=== PATIENT | male | born 1950 | race Caucasian/White ===

== ENCOUNTER → 2018-03-09 | Outpatient (CLI) | payer OTHER ==
[~2018-03-09] MED LIST: FLEXERIL5 MG PO; MEDROL DOSEPAK4 MG PO; PREDNISONE10 MG PO; PROAIR HFA0.09 MG/AC IH; PROVENTIL0.09 MG/AC IH; ROBITUSSIN AC 110 ML PO; SINGULAIR10 MG PO; SPIRIVA18 MCG IH; VOLTAREN50 M1 PO; ZITHROMAX Z PA250 MG PO
== END | disposition home or self-care (01) ==
LOC: RAD 12:06
DX: R04.2 Hemoptysis (principal); R09.89 Other specified symptoms and signs involving the circulatory and respiratory systems; Z87.891 Personal history of nicotine dependence

== ENCOUNTER 2020-06-19 01:46 | Emergency (ER) | payer OTHER ==
[~2020-06-19] VITALS: Ht 175.2 cm; Wt 108.9 kg
== END 2020-06-19 03:07 | disposition home or self-care (01) ==
LOC: ED 01:46
DX: S01.01XA Laceration without foreign body of scalp, initial encounter (principal); F17.200 Nicotine dependence, unspecified, uncomplicated; Z79.899 Other long term (current) drug therapy; W22.8XXA Striking against or struck by other objects, initial encounter; Y93.89 Activity, other specified; Y92.89 Other specified places as the place of occurrence of the external cause; Y99.8 Other external cause status

== ENCOUNTER 2020-06-26 15:25 | Emergency (ER) | payer OTHER ==
[~2020-06-26] VITALS: Ht 175.2 cm; Wt 108.9 kg
== END 2020-06-26 16:45 | disposition home or self-care (01) ==
LOC: ED 15:25
DX: S09.90XD Unspecified injury of head, subsequent encounter (principal); Z48.02 Encounter for removal of sutures; Z79.899 Other long term (current) drug therapy; X58.XXXD Exposure to other specified factors, subsequent encounter

== ENCOUNTER 2022-09-02 09:36 | Emergency (ER) | payer MEDICARE ==
[~2022-09-02] VITALS: Ht 175.2 cm; Wt 99.8 kg
[2022-09-02 11:16] LABS: BASO # 0.1 10*3/uL (0.0-0.1); BASO % 0.9 % (0.0-1.0); EOS # 0.5 10*3/uL (0.0-0.4); HEMATOCRIT 51.2 % (42.0-52.0); LYMPH % 22.2 % (27.0-41.0); MEAN CELL VOLUME 92.6 fl (80.0-94.0); MEAN CORPUSCULAR HGB 30.2 pg (27.0-31.0); MEAN CORPUSCULAR HGB CONC 32.6 g/dl (33.0-37.0); MEAN PLATELET VOLUME 9.1 fl (9.6-12.3); MONO # 0.7 10*3/uL (0.1-1.0); MONO % 8.1 % (3.0-9.0); NEUT # 5.5 10*3/uL (2.3-7.9); NEUT % 62.5 % (47.0-73.0); PLATELET COUNT AUTOMATED 266 10*3/uL (130-400); RED BLOOD COUNT 5.53 10*6/uL (4.50-5.90); RED CELL DISTRI WIDTH 12.5 % (0-14.5); WHITE BLOOD COUNT 8.8 10*3/uL (4.8-10.8)
[2022-09-02 11:29] LABS: ACT PARTIAL THROMBO TIME 32.5 SECONDS (20.0-32.1)
[2022-09-02 11:39] LABS: ALKALINE PHOSPHATASE 100 U/L (46-116); BUN 13 mg/dl (9-23); CHLORIDE 106 mmol/L (98-107); CREATININE 0.67 mg/dL (0.70-1.30); LIPASE 80 U/L (12-53); POTASSIUM 5.3 mmol/L (3.4-5.1); SGPT/ALT 33 U/L (10-49); SODIUM 138 mmol/L (136-145)
[2022-09-02] MEDS ORDERED: PREDNISONE20 M1 PO (12:46)
[2022-09-02] MEDS ORDERED: COMBIVENT RESPIM4 GM INH (12:46)
== END 2022-09-02 12:57 | disposition home or self-care (01) ==
LOC: ED 09:36
PROVIDERS: Family Medicine
DX: J44.9 Chronic obstructive pulmonary disease, unspecified (principal); F10.90 Alcohol use, unspecified, uncomplicated; Z90.49 Acquired absence of other specified parts of digestive tract

== ENCOUNTER 2023-10-15 08:02 | Emergency (ER) | payer MEDICARE ==
[~2023-10-15] VITALS: Wt 102.1 kg
[~2023-10-15 08:02] MED LIST changes: +COMBIVENT RESPIM4 GM INH; +PREDNISONE20 M1 PO
[2023-10-15 08:44] LABS: BASO # 0.1 10*3/uL (0.0-0.1); BASO % 1.1 % (0.0-1.0); EOS # 0.6 10*3/uL (0.0-0.4); EOS % 6.2 % (1.0-4.0); HEMATOCRIT 51.3 % (42.0-52.0); LYMPH # 2.5 10*3/uL (1.3-4.4); MEAN CELL VOLUME 92.4 fl (80.0-94.0); MEAN CORPUSCULAR HGB 29.4 pg (27.0-31.0); MEAN CORPUSCULAR HGB CONC 31.8 g/dl (33.0-37.0); MEAN PLATELET VOLUME 9.1 fl (9.6-12.3); MONO # 0.9 10*3/uL (0.1-1.0); MONO % 9.1 % (3.0-9.0); NEUT # 5.9 10*3/uL (2.3-7.9); NEUT % 58.1 % (47.0-73.0); PLATELET COUNT AUTOMATED 238 10*3/uL (130-400); RED BLOOD COUNT 5.55 10*6/uL (4.50-5.90); RED CELL DISTRI WIDTH 12.8 % (0-14.5); WHITE BLOOD COUNT 10.1 10*3/uL (4.8-10.8)
[2023-10-15 09:08] LABS: ALKALINE PHOSPHATASE 108 U/L (46-116); BUN 16 mg/dl (9-23); CHLORIDE 108 mmol/L (98-107); POTASSIUM 4.5 mmol/L (3.4-5.1); SGPT/ALT 35 U/L (5-49); TOTAL PROTEIN 7.1 gm/dL (6.0-8.0)
[2023-10-15] MEDS ORDERED: ZITHROMAX250 MG PO (11:56)
[2023-10-15] MEDS ORDERED: PREDNISONE50 MG PO (11:56)
== END 2023-10-15 12:42 | disposition home or self-care (01) ==
LOC: ED 08:02
PROVIDERS: Internal Medicine
DX: J44.1 Chronic obstructive pulmonary disease with (acute) exacerbation (principal); Z90.49 Acquired absence of other specified parts of digestive tract; Z20.822 Contact with and (suspected) exposure to COVID-19

== ENCOUNTER 2024-11-29 09:04 | Emergency (ER) | payer MEDICARE ==
[~2024-11-29] VITALS: Ht 175.2 cm; Wt 104.3 kg
[~2024-11-29 09:04] MED LIST changes: +PREDNISONE50 MG PO; +ZITHROMAX250 MG PO
[2024-11-29] MEDS ORDERED: Bacitracin Zinc 14 GM TUBE T ONE (10:05)
[2024-11-29] MEDS ORDERED: Tdap Vaccine 0.5 ML SYR (Adult Vaccine) IM ONE (10:05)
[2024-11-29] MEDS ORDERED: VIBRAMYCIN100 MG PO (11:08)
== END 2024-11-29 11:18 | disposition home or self-care (01) ==
LOC: ED 09:04
DX: S60.552A Superficial foreign body of left hand, initial encounter (principal); J44.9 Chronic obstructive pulmonary disease, unspecified; Z90.49 Acquired absence of other specified parts of digestive tract; W01.198A Fall on same level from slipping, tripping and stumbling with subsequent striking against other object, initial encounter; Y93.01 Activity, walking, marching and hiking; Y92.89 Other specified places as the place of occurrence of the external cause; Y99.8 Other external cause status

== ENCOUNTER → 2025-03-20 | Outpatient (CLI) | payer MEDICARE ==
[~2025-03-20] MED LIST changes: +VIBRAMYCIN100 MG PO
== END | disposition home or self-care (01) ==
LOC: RAD 10:28
PROVIDERS: ATTEND Family Medicine
DX: M19.021 Primary osteoarthritis, right elbow (principal); M79.631 Pain in right forearm